=== PATIENT | female | born 1955 | race Caucasian/White ===

== ENCOUNTER 2023-05-21 10:12 | Emergency (ER) | payer MEDICARE, OTHER ==
[2023-05-21 10:28] VITALS: BP 120/82; O2SAT 96
--- NOTE | 2023-05-21 10:49 | XRAY Report ---
PROCEDURE: Hand 3 View LT INDICATIONS: Trauma TECHNIQUE: 3 views of the hand(s) acquired. COMPARISON: None. FINDINGS: Bones: Acute oblique fracture involving fifth metacarpal shaft is seen with lateral displacement at fracture site. 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 No other fracture or dislocatio n is seen.. No suspicious bony lesions. Soft tissues: No suspicious soft tissue calcifications or masses. IMPRESSION: Acute slightly displaced fifth metacarpal shaft fracture as above. Reviewed by: Richard Gomez MD on 05/21/2023 10:48 AM [facility] Approved by: Richard Gomez MD on 05/21/2023 10:48 AM [facility] Station ID: [id number]
--- NOTE | 2023-05-21 11:14 | ED Physician Documentation ---
PD HPI UPPER EXT INJURY - Stated complaint Stated Complaint: LT HAND INJ - Chief complaint Chief Complaint: Trauma Ext - History obtained from History obtained from: Patient - History of Present Illness Location: Left, Hand Type of injury: Fall Where injury occurred: Home Timing - onset: Last night Timing - duration: Hours Timing - details: Abrupt onset, Still present Improved by: Rest, Ice, Immobilization Worsened by: Moving, Palpating Associated symptoms: Swelling, Discolored Contributing factors: No: Anticoagulated Similar symptoms before: Has not had sx before Recently seen: Not recently seen - Additonal information Additional information: 68-year-old Yi Olsen was walking her dogs last night outside when she slipped on ice and fell onto her left hand. She has swelling and ecchymosis over the lateral aspect of the hand and pain with any movement. She feels like she has broken her hand. Review of Systems Constitutional: denies: Fever Nose: denies: Congestion Throat: denies: Sore throat Respiratory: denies: Cough GI: denies: Vomiting, Diarrhea PD PAST MEDICAL HISTORY - Past Medical History Past Medical History: No Cardiovascular: Hypertension, High cholesterol GI: GERD Psych: Depression - Past Surgical History Past Surgical History: Yes General: Appendectomy /[employer]: Tubal ligation, Hysterectomy - Present Medications Home Medications: Ambulatory Orders Medication Instructions Recorded Confirmed Calcium [Calcio Antwan] 500 mg PO 02/22/13 02/22/13 Glucosamine Sulfate Dipot Chlr 1,000 mg PO 02/22/13 02/22/13 [Glucosamine] Omeprazole [PriLOSEC] 20 mg PO DAILY 02/22/13 02/22/13 Albuterol Sulfate [Proair Hfa] 8.5 gm IH Q2-4H 06/06/13 06/06/13 Benazepril HCl 20 mg PO DAILY 06/06/13 06/06/13 Fluticasone Propionate [Flovent 250 mcg IH BID 06/06/13 06/06/13 Diskus] amLODIPine [Norvasc] 5 mg PO ONCE 06/06/13 06/06/13 HYDROcod/ACETAM 5/325 [[place] 5/325] 1 - 2 tablet PO Q6H PRN #14 tablet 05/21/23 - Allergies Allergies/Adverse Reactions: Allergies Allergy/AdvReac Type Severity Reaction Status Date / Time bee venom protein (honey bee) Allergy Unknown Verified 05/21/23 10:20 codeine [Codeine] Allergy vomiting Verified 05/21/23 10:20 - Social History Does the pt smoke?: No Smoking Status: Never smoker Does the pt drink ETOH?: Yes Does the pt have substance abuse?: No - Immunizations Immunizations are current?: Yes - POLST Patient has POLST: No PD ED PE NORMAL - Vitals Vital signs reviewed: Yes (tachy and hypertensive ) - General General: Alert and oriented X 3, No acute distress, Well developed/nourished - HEENT HEENT: Atraumatic, PERRL, EOMI - Respiratory Respiratory: No respiratory distress - Derm Derm: Normal color, Warm and dry, No rash - Extremities Extremities: No deformity, Other (Swelling point tenderness and ecchymosis over the ulnar aspect of the left hand over the fifth metacarpal.) - Neuro Neuro: Alert and oriented X 3, 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, No motor deficit, No sensory deficit, Normal speech Eye Opening: Spontaneous Motor: Obeys Commands Verbal: Oriented GCS Score: 15 - Psych Psych: Normal mood, Normal affect Results - Vitals Vitals: Vital Signs - 24 hr 05/21/23 10:17 Temperature 36.4 C L Heart Rate 101 H Respiratory 18 Rate Blood Pressure 120/82 H O2 Saturation 96 Oxygen O2 Source Room air - Rads (name of study) hand Relevant Findings:: Prelim report reviewed (Impression: Acute slightly displaced fifth metacarpal shaft fracture as above), EMP independent interpretation of test Procedures - Splint (location) - Minor left wrist Splint applied by: Nurse Type of splint: Fiberglass, Ulnar gutter Other: Patient tolerated well, No complications, Neurovascular intact, Good alignment PD Medical Decision Making - ED course Complexity details: considered differential, d/w patient ED course: 68-year-old female with a fall and fracture to her hand has a midshaft oblique fracture of the fifth metacarpal. There is minimal displacement and the patient is placed into an ulnar gutter splint and expected to have complete recovery. We will refer the patient to orthopedics for casting. Departure - Departure Disposition: 01 Home, Self Care Clinical Impression: Metacarpal bone fracture Qualifiers: Encounter type: initial encounter Metacarpal bone: fifth Fracture type: closed Metacarpal location: shaft Fracture alignment: displaced Laterality: left Qualified Code(s): S62.327A - Displaced fracture of shaft of fifth metacarpal bone, left hand, initial encounter for closed fracture Condition: Stable Instructions: ED Fx Hand Closed Follow-Up: Estella Haddad MD [Primary Care Provider] - Miguel Livingston MD [Provider Admit Priv/Credential] - Prescriptions: HYDROcod/ACETAM 5/325 [[place] 5/325] 1 - 2 tablet PO Q6H PRN #14 tablet PRN Reason: Pain Comments: Afua, today it looks like you have a slightly displaced oblique fracture through the shaft of the fifth metacarpal. This fracture should heal well and you will have a better time of this if you follow-up with the orthopedic doctor and have a cast placed in the coming week. I have given you Dr. Hogan name and number for followup. I have e-scribed some pain medication to the [facility] in [place]. Discharge Date/Time: 05/21/23 12:25
[2023-05-21] MEDS ORDERED: HYDROcod/ACETAM 5/325 MG TABLET PO STA (12:19)
== END 2023-05-21 12:25 | disposition home or self-care (01) ==
LOC: ED 10:12
DX: S62.327A Displaced fracture of shaft of fifth metacarpal bone, left hand, initial encounter for closed fracture (principal); W00.0XXA Fall on same level due to ice and snow, initial encounter; Y93.K1 Activity, walking an animal
CPT/HCPCS: 29125; 73130; 99283; A9270

== ENCOUNTER 2023-05-24 08:00 | Outpatient (CLI) | payer MEDICARE, OTHER ==
--- NOTE | 2023-05-24 17:37 | XRAY Report ---
PROCEDURE: Hand 3 View LT INDICATIONS: LEFT 5 MC FRACTURE TECHNIQUE: 3 views of the hand(s) acquired. COMPARISON: 05/21/2023. FINDINGS: There is a relatively stable oblique fracture involving the midshaft of the patient's left fifth meta carpal. Old posttraumatic changes are noted involving the fourth metacarpal. No new acute osseous abn ormalities are seen. IMPRESSION: 1. Relatively stable appearance of oblique fracture through the midshaft of the left fifth metacarpal . 2. Old posttraumatic changes left fourth metacarpal. Reviewed by: Sarath Ann MD on 05/24/2023 5:35 PM PST Approved by: Sarath Ann MD on 05/24/2023 5:35 PM PST Station ID: [id number]
== END 2023-05-24 23:59 | disposition home or self-care (01) ==
LOC: DI.WOS 08:00
PROVIDERS: ATTEND Orthopaedic Surgery
DX: S62.327D Displaced fracture of shaft of fifth metacarpal bone, left hand, subsequent encounter for fracture with routine healing (principal)

== ENCOUNTER 2023-06-14 08:00 | Outpatient (CLI) | payer MEDICARE, OTHER ==
--- NOTE | 2023-06-15 12:25 | XRAY Report ---
PROCEDURE: Hand 3 View LT INDICATIONS: LEFT 5TH MC FRACTURE TECHNIQUE: 3 views of the hand(s) acquired. COMPARISON: X-ray left hand, 05/21/2023 and 05/24/2023. FINDINGS: Bones: There is an oblique fracture involving the fifth metacarpal. The alignment is unchanged. Old fourth metacarpal shaft fracture with deformity, unchanged. No suspicious bony lesions. Moderate oste ophytic changes in wrist and hand. Soft tissues: No suspicious soft tissue calcifications or masses. IMPRESSION: Fifth metacarpal fracture with stable alignment. Reviewed by: Lokesh Banegas MD on 06/15/2023 12:23 PM PST Approved by: Lokesh Banegas MD on 06/15/2023 12:23 PM PST Station ID: [id number]
== END 2023-06-14 23:59 | disposition home or self-care (01) ==
LOC: DI.WOS 08:00
PROVIDERS: ATTEND Orthopaedic Surgery
DX: S62.357D Nondisplaced fracture of shaft of fifth metacarpal bone, left hand, subsequent encounter for fracture with routine healing (principal)

== ENCOUNTER 2023-08-02 08:00 | Outpatient (CLI) | payer MEDICARE, OTHER ==
--- NOTE | 2023-08-03 08:12 | XRAY Report ---
PROCEDURE: Finger(s) LT INDICATIONS: LEFT 5TH FINGER FRACTURE TECHNIQUE: AP hand, 2 views of the finger(s) acquired. COMPARISON: X-ray left hand, 06/14/2023, 05/24/2023 and 05/21/2023. FINDINGS: Bones: Oblique fracture of the fifth metacarpal. Alignment is unchanged. No dislocations. No suspici ous bony lesions. Soft tissues: No suspicious soft tissue calcifications or masses. IMPRESSION: No significant change in appearance of fifth metacarpal fracture. Reviewed by: Lokesh Banegas MD on 08/03/2023 8:10 AM PST Approved by: Lokesh Banegas MD on 08/03/2023 8:10 AM PST Station ID: [id number]
== END 2023-08-02 23:59 | disposition home or self-care (01) ==
LOC: DI.WOS 08:00
PROVIDERS: ATTEND Orthopaedic Surgery
DX: S62.357D Nondisplaced fracture of shaft of fifth metacarpal bone, left hand, subsequent encounter for fracture with routine healing (principal)